=== PATIENT | female | born 1960 | race Caucasian/White ===

== ENCOUNTER → 2021-12-28 | Outpatient (CLI) | payer BC ==
--- NOTE | 2021-12-28 17:55 | Diagnostic Imaging Report ---
INDICATION: Left foot pain. FINDINGS: There are moderate arthritic changes throughout the interphalangeal joints. The MP joints are relatively well preserved with mild arthritic changes in the 1st MP joint. There are no fractures. No periosteal reactive changes. IMPRESSION: Moderate arthritic changes throughout the interphalangeal joints. No acute abnormalities. Dictated by: Dictated on workstation # [id number]
== END ==
LOC: RAD FS 11:05
PROVIDERS: ATTEND Nurse Practitioner
DX: M19.072 Primary osteoarthritis, left ankle and foot (principal); M25.551 Pain in right hip
CPT/HCPCS: 73630